=== PATIENT | female | born 1970 | race African-American/Black ===

== ENCOUNTER 2018-09-23 14:11 | Inpatient (IN) | payer OTHER ==
[2018-09-23 18:32] VITALS: BMI 22.1
--- NOTE | 2018-09-23 19:42 | HP ---
CIWA Score Nausea/Vomitin-No Nausea/No Vomiting Muscle Tremors: None Anxiety: 0-No Anxiety, at Ease Agitation: 1-Slight > Activity Paroxysmal Sweats: No Perspiration Orientation: 0-Oriented Tacttile Disturbances: 0-None Auditory Disturbances: 0-None Visual Disturbances: 0-None Headache: 3-Moderate CIWA-Ar Total Score: 4 - Admission Criteria OASAS Guidelines: Admission for Medically Managed Detox: Requires at least one of the followin. CIWA greater than 12 2. Seizures within the past 24 hours 3. Delirium tremens within the past 24 hours 4. Hallucinations within the past 24 hours 5. Acute intervention needed for co occurring medical disorder 6. Acute intervention needed for co occurring psychiatric disorder 7. Severe withdrawal that cannot be handled at a lower level of care (continued vomiting, continued diarrhea, abnormal vital signs) requiring intravenous medication and/or fluids 8. Patient presents the following: CIWA greater than 12 Admission Criteria Met: Admission criteria met Admission ROS S - HPI Chief Complaint: here for rehab for cocaine/crack 47 yo with h/o asthma, anemia, homeless stays in different places in the [place]. Does not work. Says looking for [place] housing. does not have a PCP. CIWA score- 6 crack/cocaine- $50-100/day heroin- no alcohol- drinks every 2 days, never had any withdrawal Sx DUR- no controlled substances Allergies/Adverse Reactions: Allergies Allergy/AdvReac Type Severity Reaction Status Date / Time No Known Allergies Allergy Verified 09/23/18 18:22 - Ebola screening Have you traveled outside of the country in the last 21 days: No (N) Have you had contact with anyone from an Ebola affected area: No Do you have a fever: No Patient History - Smoking Cessation Smoking history: Unknown if ever smoked - Substances abused Alcohol Substance route: Skin popping Frequency: Daily Amount used: 2 -3([address] [place]), 1/2 -1 pint Age of first use: 23 Date of last use: 09/22/18 Crack Substance route: Smoking Frequency: Daily Amount used: $100 Age of first use: 44 Date of last use: 09/22/18 Admission Physical Exam S - Vital Signs Vital Signs: Vital Signs - 24 hr 09/23/18 18:26 Temperature 99.3 F Pulse Rate 74 Respiratory 18 Rate Blood Pressure 108/47 L Breathalyzer - Breathalyzer Breathalyzer: 0 Urine Drug Screen - Test Device Lot number: [id number] Expiration date: 06/13/20 - Control Is test valid?: Yes - Results Drug screen NEGATIVE: No Urine drug screen results: [facility]-Cocaine Inpatient Rehab Admission - Rehab Decision to Admit Inpatient rehab admission?: Yes - Initial Determination Are CD services needed?: Yes Free of communicable disease: Yes Not in need of hospitalization: Yes - Rehab Admission Criteria Previous failed treatment: Yes Poor recovery environment: Yes Comorbidities: No Lacks judgement: Yes Patient is meeting Inpatient Rehab admission criteria:: Yes (rehab from cocaine use)
[2018-09-23] MEDS ORDERED: MENTHOL/PHENOL 1 EACH UD MM PRN (19:46)
[2018-09-23] MEDS ORDERED: MAGNESIUM CITRATE 300 ML BOTTLE PO PRN (19:46)
[2018-09-23] MEDS ORDERED: MAGNESIUM HYDROX 2400MG/30ML ORAL SUSPENSION 30 ML CUP PO PRN (19:46)
[2018-09-23] MEDS ORDERED: P-EPHED 60MG/TRIPROLIDI 2.5MG TABLET PO PRN (19:46)
[2018-09-23] MEDS ORDERED: ACETAMINOPHEN 325 MG TABLET (FP) PO PRN (19:46)
[2018-09-23] MEDS ORDERED: guaiFENesin 200 MG/10 ML 10 ML UNIT-DOSE CUPS PO PRN (19:46)
[2018-09-23] MEDS ORDERED: MAG HYDROX/AL HYDROX/SIMETH 30 ML UNIT-DOSE CUP PO PRN (19:46)
[2018-09-23] MEDS ORDERED: hydrOXYzine PAMOATE 25 MG CAPSULE (FP) PO PRN (19:46)
[2018-09-23] MEDS ORDERED: LOPERAMIDE HCL 2 MG CAPSULE PO PRN (19:46)
[2018-09-23] MEDS ORDERED: ALBUTEROL SO4 8 GM HFA INHALER IH SCH (20:00)
[2018-09-23] MEDS ORDERED: MELATONIN 5 MG TABLETS PO PRN (22:00)
[2018-09-23] MEDS ORDERED: ALBUTEROL SO4 8 GM HFA INHALER IH PRN (22:18)
[2018-09-23] MEDS ORDERED: TUBERCULIN PPD 5 TU/0.1ML VIAL ID ONE ×2 (23:09→23:44)
[2018-09-23] MEDS: THIAMINE HCL 100 MG TABLET (FP) PO SCH (23:44)
[2018-09-24] MEDS: PRENATAL VITAMINS W/ FOLIC ACID TABLET (FP) PO SCH (09:14)
[2018-09-24 12:17] LABS: HEMATOCRIT 27.8 % (32.4-45.2); HEMOGLOBIN 8.9 GM/dL (10.7-15.3); MCH 25.8 pg (25.7-33.7); MEAN CELL VOLUME 80.7 fl (80-96); MEAN PLT VOLUME 7.8 fl (7.5-11.1); RBC 3.44 M/mm3 (3.60-5.2); RDW 18.9 % (11.6-15.6); WHITE BLOOD COUNT 6.4 K/mm3 (4.0-10.0)
[2018-09-24 12:22] LABS: PLATELET COUNT 291 K/MM3 (134-434)
[2018-09-24 12:34] LABS: ALBUMIN 3.3 g/dl (3.4-5.0); BILIRUBIN,TOTAL 0.4 mg/dL (0.2-1); BLOOD UREA NITROGEN 13.7 mg/dL (7-18); CALCIUM 8.6 mg/dL (8.5-10.1); CREATININE 0.8 mg/dL (0.55-1.3); TOT PROT 6.9 g/dl (6.4-8.2)
[2018-09-24] MEDS: IBUPROFEN 400 MG TABLET (FP) PO PRN (14:07)
--- NOTE | 2018-09-24 15:14 | PN ---
[facility] Progress Note Note: PT IS A 47 Y/O FEMALE ADMITTED YESTERDAY FROM [facility] NOW C/O LOWER JAW/CHIN AND TOOTHACHE. REPORTS A TYPE OF ULCER ON CHIN AREA STATING IT'S AN ABSCESS FROM TOOTH INFECTION. DENIES RECENT VISIT TO DENTIST. REQUESTING TO GO NOW TO SEE A DENTIST. PER H/P, PT IS HOMELESS AND HAS NO CURRENT PCP FOR MEDICAL MANAGEMENT. Vital Signs - 24 hr 09/23/18 09/24/18 09/24/18 18:26 03:30 07:04 Temperature 99.3 F 97.9 F Pulse Rate 74 62 Respiratory 18 16 16 Rate Blood Pressure 108/47 L 99/61 Laboratory Tests 09/24/18 09/24/18 09:00 09:00 WBC 6.4 RBC 3.44 L Hgb 8.9 L Hct 27.8 L MCV 80.7 MCH 25.8 MCHC 32.0 RDW 18.9 H Plt Count 291 MPV 7.8 Sodium 141 Potassium 4.0 Chloride 109 H Carbon Dioxide 24 Anion Gap 8 BUN 13.7 Creatinine 0.8 Est GFR (CKD-EPI)AfAm 101.75 Est GFR (CKD-EPI)NonAf 87.79 Random Glucose 94 Calcium 8.6 Total Bilirubin 0.4 AST 32 ALT 33 Alkaline Phosphatase 77 Total Protein 6.9 Albumin 3.3 L ORAL EXAM:LOWER JAW TOOTH DECAY /GUM SWELLING ALONG LOWER INCISOR. DARK COLORED OPEN SORE TO CHIN A:TOOTH DECAY TOOTH ABSCESS CHIN ULCER PLAN:BACITRACIN OINTMENT BID TO ULCER ON CHIN. AUGMENTIN 875 MG PO BID 7 DAYS
[2018-09-24] MEDS ORDERED: COLLOIDAL OATMEAL 1 BAR EACH TP PRN (15:35)
[2018-09-24] MEDS: AMOX TR/POT CLAV 875MG/125MG TABLETS (FP) PO SCH (17:55)
[2018-09-24] MEDS: THIAMINE HCL 100 MG TABLET (FP) PO SCH (21:17)
[2018-09-25] MEDS: AMOX TR/POT CLAV 875MG/125MG TABLETS (FP) PO SCH ×2 (07:36→18:14)
[2018-09-25] MEDS: PRENATAL VITAMINS W/ FOLIC ACID TABLET (FP) PO SCH (10:11)
[2018-09-25] MEDS: THIAMINE HCL 100 MG TABLET (FP) PO SCH (21:30)
[2018-09-26] MEDS: AMOX TR/POT CLAV 875MG/125MG TABLETS (FP) PO SCH ×2 (07:41→16:53)
[2018-09-26] MEDS: PRENATAL VITAMINS W/ FOLIC ACID TABLET (FP) PO SCH (11:02)
[2018-09-26] MEDS: IBUPROFEN 400 MG TABLET (FP) PO PRN (11:14)
[2018-09-26] MEDS: THIAMINE HCL 100 MG TABLET (FP) PO SCH (21:46)
[2018-09-27] MEDS: AMOX TR/POT CLAV 875MG/125MG TABLETS (FP) PO SCH ×2 (09:00→17:30)
[2018-09-27] MEDS: PRENATAL VITAMINS W/ FOLIC ACID TABLET (FP) PO SCH (10:58)
[2018-09-27] MEDS: THIAMINE HCL 100 MG TABLET (FP) PO SCH (21:13)
[2018-09-28] MEDS: AMOX TR/POT CLAV 875MG/125MG TABLETS (FP) PO SCH ×2 (07:19→16:41)
[2018-09-28] MEDS: PRENATAL VITAMINS W/ FOLIC ACID TABLET (FP) PO SCH (10:02)
[2018-09-28] MEDS: THIAMINE HCL 100 MG TABLET (FP) PO SCH (21:11)
[2018-09-29] MEDS: AMOX TR/POT CLAV 875MG/125MG TABLETS (FP) PO SCH ×2 (07:41→18:45)
[2018-09-29] MEDS: PRENATAL VITAMINS W/ FOLIC ACID TABLET (FP) PO SCH (09:10)
[2018-09-29] MEDS: THIAMINE HCL 100 MG TABLET (FP) PO SCH (21:43)
[2018-09-30 07:08] VITALS: BP 98/62; PULSE 72; TEMP 98.7
[2018-09-30] MEDS: AMOX TR/POT CLAV 875MG/125MG TABLETS (FP) PO SCH (07:55)
[2018-09-30] MEDS: PRENATAL VITAMINS W/ FOLIC ACID TABLET (FP) PO SCH (10:23)
--- NOTE | 2018-09-30 14:27 | PN ---
[facility] Progress Note Note: Notified by RN (via call book) that patient c/o leg cramps. Patient was on pay phone when provided approached but patient yelled " I wanted don't want to see nobody!!". 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 Patient was noted pacing in hallway, alert and oriented x 3, in no acute distress, packing clothes and argumentative with staff when ambulance arrived on unit with security. Patient had called 911 to go to ER for leg cramps and headache. With ambulance present, patient was in room combing hair, amb ad jose rafael, and collecting cereal from dining area. Patient left unit on stretcher with ambulance/2 EMT workers, alert and oriented x 3 in no acute distress. Vital Signs Temperature 98.7 F 09/30/18 07:08 Pulse Rate 72 09/30/18 07:08 Respiratory Rate 18 09/30/18 07:08 Blood Pressure 98/62 09/30/18 07:08 O2 Sat by Pulse Oximetry (%) Laboratory Tests 09/23/18 09/24/18 09/24/18 19:18 09:00 09:00 WBC 6.4 RBC 3.44 L Hgb 8.9 L Hct 27.8 L MCV 80.7 MCH 25.8 MCHC 32.0 RDW 18.9 H Plt Count 291 MPV 7.8 Sodium 141 Potassium 4.0 Chloride 109 H Carbon Dioxide 24 Anion Gap 8 BUN 13.7 Creatinine 0.8 Est GFR (CKD-EPI)AfAm 101.75 Est GFR (CKD-EPI)NonAf 87.79 Random Glucose 94 Calcium 8.6 Total Bilirubin 0.4 AST 32 ALT 33 Alkaline Phosphatase 77 Total Protein 6.9 Albumin 3.3 L POC Urine HCG, Qual Negative RPR Titer 09/24/18 09:00 WBC RBC Hgb Hct MCV MCH MCHC RDW Plt Count MPV Sodium Potassium Chloride Carbon Dioxide Anion Gap BUN Creatinine Est GFR (CKD-EPI)AfAm Est GFR (CKD-EPI)NonAf Random Glucose Calcium Total Bilirubin AST ALT Alkaline Phosphatase Total Protein Albumin POC Urine HCG, Qual RPR Titer Nonreactive
== END 2018-09-30 12:41 | disposition home or self-care (01) | DRG 772 ==
LOC: YASAS 14:11 → Y3E 20:09
PROVIDERS: ADMIT Neuromusculoskeletal Medicine & OMM; ATTEND Neuromusculoskeletal Medicine & OMM
PROC: HZ42ZZZ Group Counseling for Substance Abuse Treatment, Cognitive-Behavioral (ICD-10-PCS; principal; 2018-09-23)
DX: F14.20 Cocaine dependence, uncomplicated (principal); F10.10 Alcohol abuse, uncomplicated; K04.7 Periapical abscess without sinus; L98.491 Non-pressure chronic ulcer of skin of other sites limited to breakdown of skin; Z87.09 Personal history of other diseases of the respiratory system; Z86.2 Personal history of diseases of the blood and blood-forming organs and certain disorders involving the immune mechanism; Z59.0 Homelessness
CPT/HCPCS: 36415; 80053; 81025; 85027; 86593

== ENCOUNTER 2018-09-30 12:55 | Emergency (ER) | payer OTHER ==
[2018-09-30 13:22] VITALS: BP 108/63; PULSE 76; TEMP 98; BMI 19.3
--- NOTE | 2018-09-30 13:22 | PDOC ---
Rapid Medical Evaluation Time Seen by Provider: 09/30/18 13:18 Medical Evaluation: Allergies Allergy/AdvReac Type Severity Reaction Status Date / Time No Known Allergies Allergy Verified 09/23/18 18:22 09/30/18 13:18 This patient had brief in-person evaluation in triage cc: migraine x 1 week. sent from [facility] took ibuprofen with no relief of pain. Also reports nausea PE: NAD unlabored breathing EOMI, full strength in limbs orders: analgesia ordered This patient will proceed to the Ed for further evaluation
--- NOTE | 2018-09-30 16:06 | PDOC ---
History of Present Illness - General Chief Complaint: Migraine Headache Stated Complaint: MIGRAINE Time Seen by Provider: 09/30/18 13:18 - History of Present Illness Initial Comments: 09/30/18 16:06 Ms. Randolph is a 47 yo female w/ pmh of asthma, anemia, and substance abuse ( currently detoxing from alcohol and crack/cocaine; last use 09/20/18) who presents for evaluation of 1 week history of constant headache typical of her migraines. Patient reports she has often had migraines lasting for much longer for this and that light and sound make it worse. It is not her worst headache nor was it sudden onset in nature. Patient reports it has coincided with her alcohol cessation. Also reports intermittent cramps for the last several weeks. Denies any other symptoms at this time. The patient denies chest pain, shortness of breath, and dizziness. Denies fever , chills, nausea, vomit, diarrhea and constipation. Denies dysuria, frequency, urgency and hematuria. Past History - Past Medical History Allergies/Adverse Reactions: Allergies Allergy/AdvReac Type Severity Reaction Status Date / Time No Known Allergies Allergy Verified 09/23/18 18:22 Home Medications: Ambulatory Orders Amox-Tr/K Cl [Augmentin - 875Mg Tablet] 1 tab PO BID 09/30/18 Asthma: No Cardiac Disorders: No COPD: No Diabetes: No GI Disorders: No Disorders: No HTN: No Kidney Stones: No Seizures: No - Surgical History Abdominal Surgery: No Appendectomy: No Cardiac Surgery: No Cholecystectomy: No Lung Surgery: No Neurologic Surgery: No Orthopedic Surgery: No - Immunization History Immunization Up to Date: No - Suicide/Smoking/Psychosocial Hx Smoking History: Current every day smoker Have you smoked in the past 12 months: Yes Information on smoking cessation initiated: No Hx Alcohol Use: Yes Drug/Substance Use Hx: Yes Hx Substance Use Treatment: No Review of Systems - Review of Systems Comments:: 09/30/18 16:24 GENERAL/CONSTITUTIONAL: No fever or chills. No weakness. HEAD, EYES, EARS, NOSE AND THROAT: No change in vision. No ear pain or discharge. No sore throat. CARDIOVASCULAR: No chest pain or shortness of breath RESPIRATORY: No cough, wheezing, or hemoptysis. GASTROINTESTINAL: No nausea, vomiting, diarrhea or constipation. GENITOURINARY: No dysuria, frequency, or change in urination. MUSCULOSKELETAL: +Cramps as described. No joint or muscle swelling or pain. No neck or back pain. SKIN: No rash NEUROLOGIC: +Headache as described. No vertigo, loss of consciousness, or change in strength/sensation. ENDOCRINE: No increased thirst. No abnormal weight change HEMATOLOGIC/LYMPHATIC: No anemia, easy bleeding, or history of blood clots. ALLERGIC/IMMUNOLOGIC: No hives or skin allergy. *Physical Exam - Vital Signs Last Vital Signs Temp Pulse Resp BP Pulse Ox 98.0 F 76 18 108/63 99 09/30/18 13:18 09/30/18 13:18 09/30/18 13:18 09/30/18 13:18 09/30/18 13:18 - Physical Exam Comments: 09/30/18 16:24 GENERAL: Awake, alert, and fully oriented, in no acute distress HEAD: No signs of trauma, normocephalic, atraumatic EYES: PERRLA, EOMI, sclera anicteric, conjunctiva clear ENT: Auricles normal inspection, hearing grossly normal, nares patent, oropharynx clear without exudates. Moist mucosa NECK: Normal ROM, supple, no lymphadenopathy, JVD, or masses LUNGS: No distress, speaks full sentences, clear to auscultation bilaterally HEART: Regular rate and rhythm, normal S1 and S2, no murmurs, rubs or gallops, peripheral pulses normal and equal bilaterally. ABDOMEN: Soft, nontender, normoactive bowel sounds. No guarding, no rebound. No masses EXTREMITIES: Normal inspection, Normal range of motion, no edema. No clubbing or cyanosis. NEUROLOGICAL: Cranial nerves II through XII grossly intact. Normal speech, normal gait, no focal sensorimotor deficits SKIN: Warm, Dry, normal turgor, no rashes or lesions noted. ED Treatment Course - LABORATORY CBC & Chemistry Diagram: 09/30/18 16:40 09/30/18 16:40 Medical Decision Making - Medical Decision Making 09/30/18 16:30 Ms. Randolph is a 47 yo female w/ pmh as described who presents for evaluation of headache. Patient evaluated for electrolyte abnormalities given cramps and given analgesia w/ reglan/fluids. Patient currently pending further workup. 09/30/18 17:52 Patient evaluated with labs as below. Noted to be anemic to 8.8/27.4, stable from 8.9/27.8 on 09/24. Patient reporting improvement of headache. Patient evaluated by social work on request of patient for housing options following rehab as patient is currently homeless. Please see social work note for further information. No concern for acute process at this itme. Discharging to home. Laboratory Results - last 24 hr 09/30/18 09/30/18 16:40 16:40 WBC 4.0 RBC 3.43 L Hgb 8.8 L Hct 27.4 L MCV 79.8 L MCH 25.5 L MCHC 32.0 RDW 18.8 H Plt Count 248 MPV 7.4 L Absolute Neuts (auto) 2.4 Neutrophils % 60.2 Lymphocytes % 16.3 Monocytes % 20.8 H Eosinophils % 2.4 Basophils % 0.3 Nucleated RBC % 0 Sodium 134 L Potassium 4.6 Chloride 101 Carbon Dioxide 29 Anion Gap 5 L BUN 17.6 Creatinine 0.8 Est GFR (CKD-EPI)AfAm 101.75 Est GFR (CKD-EPI)NonAf 87.79 Random Glucose 88 Calcium 8.8 Total Bilirubin 0.2 AST 53 H ALT 40 Alkaline Phosphatase 73 Total Protein 7.6 Albumin 3.7 09/30/18 17:53 *DC/Admit/Observation/Transfer Diagnosis at time of Disposition: Headache Qualifiers: Headache type: unspecified Headache chronicity pattern: unspecified pattern Intractability: not intractable Qualified Code(s): R51 - Headache - Discharge Dispostion Disposition: HOME Condition at time of disposition: Stable - Referrals - Patient Instructions Printed Discharge Instructions: DI for Migraine Additional Instructions: You were evaluated today in the ER for your headache. We performed laboratory analysis and gave you medications which improved your symptoms. We do not believe anything emergent is occurring at this time. Please follow-up with primary care provider in 2-3 days for further evaluation. Return to ER if any increase in headache, change in mental status, fever, chills, or other concerning symptoms. - Post Discharge Activity
[2018-09-30] MEDS ORDERED: SODIUM CHLORIDE 1,000 ML IV STA (16:18)
[2018-09-30] MEDS ORDERED: METOCLOPRAMIDE HCL INJECTION 10 MG/2 ML VIAL IVPUSH ONE (16:23)
[2018-09-30] MEDS ORDERED: METOCLOPRAMIDE HCL INJECTION 10 MG/2 ML VIAL ONE (16:37)
[2018-09-30 17:09] LABS: BASO % 0.3 % (0-2.0); EOS % 2.4 % (0-4.5); HEMATOCRIT 27.4 % (32.4-45.2); HEMOGLOBIN 8.8 GM/dL (10.7-15.3); LYMPH % 16.3 % (8-40); MCH 25.5 pg (25.7-33.7); MEAN CELL VOLUME 79.8 fl (80-96); MEAN PLT VOLUME 7.4 fl (7.5-11.1); MONO % 20.8 % (3.8-10.2); NEUT % 60.2 % (42.8-82.8); PLATELET COUNT 248 K/MM3 (134-434); RBC 3.43 M/mm3 (3.60-5.2); RDW 18.8 % (11.6-15.6)
[2018-09-30 17:24] LABS: ALBUMIN 3.7 g/dl (3.4-5.0); BILIRUBIN,TOTAL 0.2 mg/dL (0.2-1); BLOOD UREA NITROGEN 17.6 mg/dL (7-18); CALCIUM 8.8 mg/dL (8.5-10.1); CREATININE 0.8 mg/dL (0.55-1.3); POTASSIUM 4.6 mmol/L (3.5-5.1); TOT PROT 7.6 g/dl (6.4-8.2)
--- NOTE | 2018-09-30 18:26 | PDOC ---
Documentation entered by Tez Bonds SCRIBE, acting as scribe for Maggy Pérez MD. Maggy Pérez MD: This documentation has been prepared by the Vamshi chery Joel, SCRIBE, under my direction and personally reviewed by me in its entirety. I confirm that the documentation accurately reflects all work, treatment, procedures, and medical decision making performed by me. Attending Attestation - Resident Resident Name: Edy Whelan - ED Attending Attestation I have performed the following: I have examined & evaluated the patient, The case was reviewed & discussed with the resident, I agree w/resident's findings & plan, Exceptions are as noted - HPI HPI: 09/30/18 17:22 slender 47 yo female presents from [facility] for headache. She states she has a history of migraines. - Physicial Exam PE: 09/30/18 17:26 47 yo female is alert and conversant head ncat neck supple lungs cta b/l cvs [id number] abd soft,nontender skin warm and dry no cva tenderness neuro axox3,ambulatory psych calm and cooperative - Medical Decision Making 09/30/18 18:20 labs reviewed and she has a chronic anemia her headache resolved with IVF and reglan and she has no focal neuro deficits and is being discharged back to [facility]
[2018-09-30 22:02] LABS: PLATELET ESTIMATE ADEQUATE
== END 2018-09-30 19:22 | disposition home or self-care (01) ==
LOC: JER 12:55
PROC: 3E0337Z Introduction of Electrolytic and Water Balance Substance into Peripheral Vein, Percutaneous Approach (ICD-10-PCS; principal; 2018-09-30)
PROC: 3E033GC Introduction of Other Therapeutic Substance into Peripheral Vein, Percutaneous Approach (ICD-10-PCS; 2018-09-30)
DX: R51 Headache (principal); F10.10 Alcohol abuse, uncomplicated; F14.10 Cocaine abuse, uncomplicated; J45.909 Unspecified asthma, uncomplicated; Z86.2 Personal history of diseases of the blood and blood-forming organs and certain disorders involving the immune mechanism
CPT/HCPCS: 36415; 80053; 85025; 96361; 96374; 99282-25; J7030